=== PATIENT | female | born 1980 | race Asian ===

== ENCOUNTER 2020-07-08 08:00 | Outpatient (CLI) | payer OTHER ==
[2020-07-08 12:37] LABS: ALBUMIN 4.1 g/dL (3.2-5.5); ALBUMIN/GLOBULIN RATIO 0.9 (1.0-2.2); ALKALINE PHOSPHATASE 46 IU/L (42-121); ALT ALANINE AMINOTRANSFERASE 29 IU/L (10-60); AST ASPARTATE AMINOTRANSFERASE 20 IU/L (10-42); BILIRUBIN,TOTAL 0.8 mg/dL (0.2-1.0); BUN - BLOOD UREA NITROGEN 18 mg/dL (6-20); CARBON DIOXIDE - CO2 26 mmol/L (21-32); CHLORIDE 102 mmol/L (101-111); CHOL/HDL RATIO 3.7 (<4.4); CHOLESTEROL 196 mg/dL; CREATININE 0.4 mg/dL (0.4-1.0); GFR - MDRD 178 (>89); GLUCOSE 109 mg/dL (70-100); HDL CHOLESTEROL 53 mg/dL; LDL CHOLESTEROL,CALCULATED 126 mg/dL; LDL/HDL RATIO 2.4 (<4.4); POTASSIUM 3.7 mmol/L (3.5-5.0); SODIUM 136 mmol/L (135-145); TOTAL PROTEIN 8.5 g/dL (6.7-8.2); TRIGLYCERIDES 83 mg/dL; VLDL CHOLESTEROL 17 mg/dL
[2020-07-08 12:48] LABS: THYROID STIMULATING HORMONE 1.71 uIU/mL (0.34-5.60)
[2020-07-08 12:52] LABS: ESTIMATED AVERAGE GLUCOSE 114 mg/dL (70-100); HEMOGLOBIN A1c% 5.6 % (4.27-6.07)
== END 2020-07-08 23:59 | disposition home or self-care (01) ==
LOC: LAB.WCP 08:00
PROVIDERS: ATTEND Family Medicine
DX: Z86.32 Personal history of gestational diabetes (principal); L65.9 Nonscarring hair loss, unspecified
CPT/HCPCS: 36415; 80053; 80061; 83036; 83721; 84443

== ENCOUNTER 2021-05-07 08:00 | Outpatient (CLI) | payer OTHER ==
[2021-05-07 12:29] LABS: BASOPHILS % (AUTO) 0.9 %; EOSINOPHILS # (AUTO) 0.2 10^3/uL (0.0-0.7); EOSINOPHILS % (AUTO) 4.1 %; HCT - HEMATOCRIT 39.1 % (37.0-47.0); HGB - HEMOGLOBIN 12.5 g/dL (12.0-16.0); LYMPHOCYTES # (AUTO) 1.6 10^3/uL (1.5-3.5); LYMPHOCYTES % (AUTO) 35.1 %; MEAN CORPUSCULAR HEMOGLOBIN 25.8 pg (27.0-31.0); MEAN CORPUSCULAR VOLUME 80.8 fL (81.0-99.0); MEAN PLATELET VOLUME 11.1 fL (7.9-10.8); MONOCYTES # (AUTO) 0.3 10^3/uL (0.0-1.0); MONOCYTES % (AUTO) 6.5 %; NEUTROPHILS # (AUTO) 2.5 10^3/uL (1.5-6.6); NEUTROPHILS % (AUTO) 53.2 %; PLT - PLATELET COUNT 242 10^3/uL (130-450); RED BLOOD COUNT 4.84 10^6/uL (4.20-5.40); RED CELL DISTRIBUTION WIDTH 12.3 % (12.0-15.0); WHITE BLOOD COUNT 4.6 x10^3/uL (4.8-10.8)
[2021-05-07 12:37] LABS: THYROID STIMULATING HORMONE 2.34 uIU/mL (0.34-5.60)
[2021-05-07 12:40] LABS: ALBUMIN/GLOBULIN RATIO 0.9 (1.0-2.2); ALKALINE PHOSPHATASE 44 IU/L (42-121); ALT ALANINE AMINOTRANSFERASE 43 IU/L (10-60); AST ASPARTATE AMINOTRANSFERASE 34 IU/L (10-42); BILIRUBIN,TOTAL 0.9 mg/dL (0.2-1.0); BUN - BLOOD UREA NITROGEN 11 mg/dL (6-20); CARBON DIOXIDE - CO2 29 mmol/L (21-32); CHLORIDE 101 mmol/L (101-111); CHOL/HDL RATIO 3.9 (<4.4); CHOLESTEROL 204 mg/dL; CREATININE 0.5 mg/dL (0.4-1.0); GFR - MDRD 137 (>89); GLUCOSE 121 mg/dL (70-100); HDL CHOLESTEROL 52 mg/dL; LDL CHOLESTEROL,CALCULATED 126 mg/dL; LDL/HDL RATIO 2.4 (<4.4); POTASSIUM 3.8 mmol/L (3.5-5.0); SODIUM 136 mmol/L (135-145); TOTAL PROTEIN 8.5 g/dL (6.7-8.2); TRIGLYCERIDES 129 mg/dL; VLDL CHOLESTEROL 26 mg/dL
[2021-05-07 12:42] LABS: ESTIMATED AVERAGE GLUCOSE 120 mg/dL (70-100); HEMOGLOBIN A1c% 5.8 % (4.27-6.07)
== END 2021-05-07 23:59 | disposition home or self-care (01) ==
LOC: LAB.WCP 08:00
PROVIDERS: ATTEND Family Medicine
DX: Z00.00 Encounter for general adult medical examination without abnormal findings (principal); Z86.32 Personal history of gestational diabetes
CPT/HCPCS: 36415; 80053; 80061; 83036; 83721; 84443; 85025

== ENCOUNTER 2021-07-15 10:12 | Day surgery (SDC) | payer OTHER ==
[2021-07-15] MEDS ORDERED: LACTATED RINGERS 1,000 ML IV ONE (10:15)
[2021-07-15 10:31] LABS: HCG UR QUAL NEGATIVE
--- NOTE | 2021-07-15 11:05 | ANESTHESIA ---
Pre-Anesthesia VS, & Labs - Diagnosis rectal bleeding - Procedure colonoscopy, hemorrhoidectomy and banding Vital Signs: Temp Pulse Resp BP Pulse Ox 36.6 C 73 16 121/64 100 07/15/21 10:33 07/15/21 10:33 07/15/21 10:33 07/15/21 10:33 07/15/21 10:33 Height: 5 ft 2 in Weight (kg): 71 kg Body Mass Index: 28.6 BMI Classification: Overweight - NPO >8 hours - Is Patient ?: No - Lab Results Lab results reviewed: Yes Home Medications and Allergies Home Medications: Ambulatory Orders No Known Home Medications 07/14/21 No Known Home Medications 07/14/21 Allergies/Adverse Reactions: Allergies Allergy/AdvReac Type Severity Reaction Status Date / Time ibuprofen AdvReac Unknown Verified 07/14/21 13:38 Anes History & Medical History - Anesthetic History Anesthesia Complications: reports: No previous complications Family history of Anesthesia Complications: Denies Family history of Malignant Hyperthermia: Denies - Medical History Cardiovascular: reports: None Pulmonary: reports: None Gastrointestinal: reports: None Urinary: reports: None Musculoskeletal: reports: None Endocrine/Autoimmune: reports: None Skin: reports: None Exam General: Alert, Oriented x3, Cooperative, No acute distress Dental: WNL Mouth Openin Fingerbreadth Neck Mobility: Normal Mallampati classification: II Plan Anesthesia Type: General, Total IV Consent for Procedure(s) Verified and Reviewed: Yes Code Status: Attempt Resuscitation ASA classification: 2-Mild systemic disease Is this case an emergency?: No
[2021-07-15] MEDS ORDERED: PROPOFOL 500 MG/50 ML 500 MG/50 ML VIAL ONE (11:36)
[2021-07-15] MEDS ORDERED: PROPOFOL 200 MG/20 ML VIAL IVP ONE (12:13)
[2021-07-15] MEDS ORDERED: LACTATED RINGERS 400 ML IV ONE (12:23)
[2021-07-15 12:33] VITALS: BP 111/62
--- NOTE | 2021-07-15 13:27 | ANESTHESIA POST OP EVALUATION ---
Anesthesia Post Eval - Post Anesthesia Eval Vitals: Last Vital Signs Temp 0 C L 07/15/21 12:32 Pulse 75 07/15/21 12:32 Resp 16 07/15/21 12:32 BP 111/62 07/15/21 12:32 Pulse Ox 99 07/15/21 12:32 CV Function Including HR & BP: Stable Pain Control: Satisfactory Nausea & Vomiting: Negative Mental Status: Baseline Respiratory Status: Airway Patent Hydration Status: Satisfactory Anesthesia Complications: None
== END 2021-07-15 10:13 | disposition home or self-care (01) ==
LOC: SDS 10:12
PROVIDERS: ATTEND Surgery
DX: K62.5 Hemorrhage of anus and rectum (principal); K64.8 Other hemorrhoids; K64.4 Residual hemorrhoidal skin tags; K59.00 Constipation, unspecified
CPT/HCPCS: 45378; 81025; J7120

== ENCOUNTER 2021-08-11 14:50 | Outpatient (CLI) | payer OTHER ==
--- NOTE | 2021-08-15 16:18 | Mammography Report ---
BILATERAL DIGITAL SCREENING MAMMOGRAM 3D/2D: 08/11/2021 CLINICAL: Baseline exam Routine screening. No prior exams were available for comparison. The tissue of both breasts is heterogeneously dense. T his may lower the sensitivity of mammography. No significant masses, calcifications, or other findings are seen in either breast. IMPRESSION: NEGATIVE There is no mammographic evidence of malignancy. A 1 year screening mammogram is recommended. This exam was interpreted at Station ID: [id number]. NOTE: For mammograms, a report in lay terms will be sent to the patient. Approximately 15% of breast malignancies will not be visualized mammographically. In the management of a palpable breast mass, a negative mammogram must not discourage biopsy of a clinically suspicious lesion. Electronically Signed By: Phillip [email or web address]:08/12/2021 08:36:46 ACR BI-RADS Category 1: Negative 3341F PARENCHYMAL PATTERN: (D) - The breast(s) demonstrate(s) heterogeneously dense fibroglandular hitesh alvarado. BI-RADS CATEGORY: (1) - 1 RECOMMENDATION: (ANNUAL) - Recommend routine annual screening mammography. [id number] 1 year screening LATERALITY: (B)
== END 2021-08-11 14:51 | disposition home or self-care (01) ==
LOC: DI.N 14:50
DX: Z12.31 Encounter for screening mammogram for malignant neoplasm of breast (principal)

== ENCOUNTER 2022-06-19 08:10 | Outpatient (CLI) | payer OTHER ==
[2022-06-19 11:53] LABS: BASOPHILS % (AUTO) 1.1 %; EOSINOPHILS # (AUTO) 0.2 10^3/uL (0.0-0.7); EOSINOPHILS % (AUTO) 4.2 %; HCT - HEMATOCRIT 38.7 % (37.0-47.0); HGB - HEMOGLOBIN 12.2 g/dL (12.0-16.0); LYMPHOCYTES # (AUTO) 1.4 10^3/uL (1.5-3.5); LYMPHOCYTES % (AUTO) 38.4 %; MEAN CORPUSCULAR HEMOGLOBIN 25.4 pg (27.0-31.0); MEAN CORPUSCULAR HGB CONC 31.5 g/dL (32.0-36.0); MEAN CORPUSCULAR VOLUME 80.6 fL (81.0-99.0); MEAN PLATELET VOLUME 11.1 fL (7.9-10.8); MONOCYTES # (AUTO) 0.3 10^3/uL (0.0-1.0); MONOCYTES % (AUTO) 7.8 %; NEUTROPHILS # (AUTO) 1.7 10^3/uL (1.5-6.6); NEUTROPHILS % (AUTO) 48.2 %; PLT - PLATELET COUNT 234 10^3/uL (130-450); RED CELL DISTRIBUTION WIDTH 12.2 % (12.0-15.0); WHITE BLOOD COUNT 3.6 x10^3/uL (4.8-10.8)
[2022-06-19 12:22] LABS: ALBUMIN/GLOBULIN RATIO 0.9 (1.0-2.2); ALKALINE PHOSPHATASE 43 IU/L (42-121); ALT ALANINE AMINOTRANSFERASE 36 IU/L (10-60); AST ASPARTATE AMINOTRANSFERASE 28 IU/L (10-42); BILIRUBIN,TOTAL 0.7 mg/dL (0.2-1.0); BUN - BLOOD UREA NITROGEN 15 mg/dL (6-20); CALCIUM 9.4 mg/dL (8.5-10.3); CARBON DIOXIDE - CO2 28 mmol/L (21-32); CHLORIDE 104 mmol/L (101-111); CHOLESTEROL 196 mg/dL; CREATININE 0.5 mg/dL (0.4-1.0); GFR - MDRD 136 (>89); GLUCOSE 117 mg/dL (70-100); HDL CHOLESTEROL 49 mg/dL; LDL CHOLESTEROL,CALCULATED 135 mg/dL; LDL/HDL RATIO 2.8 (<4.4); POTASSIUM 3.9 mmol/L (3.5-5.0); SODIUM 138 mmol/L (135-145); THYROID STIMULATING HORMONE 2.17 uIU/mL (0.34-5.60); TOTAL PROTEIN 8.4 g/dL (6.7-8.2); TRIGLYCERIDES 61 mg/dL; VLDL CHOLESTEROL 12 mg/dL
[2022-06-19 12:40] LABS: ESTIMATED AVERAGE GLUCOSE 123 mg/dL (70-100); HEMOGLOBIN A1c% 5.9 % (4.27-6.07)
== END 2022-06-19 08:11 | disposition home or self-care (01) ==
LOC: LAB.N 08:10
PROVIDERS: ATTEND Nurse Practitioner Family
DX: Z00.00 Encounter for general adult medical examination without abnormal findings (principal); R73.01 Impaired fasting glucose
CPT/HCPCS: 36415; 80053; 80061; 83036; 83721; 84443; 85025

== ENCOUNTER 2023-02-19 08:20 | Outpatient (CLI) | payer OTHER ==
[2023-02-19 12:27] LABS: BASOPHILS % (AUTO) 0.5 %; EOSINOPHILS # (AUTO) 0.2 10^3/uL (0.0-0.7); EOSINOPHILS % (AUTO) 5.1 %; HCT - HEMATOCRIT 39.1 % (37.0-47.0); HGB - HEMOGLOBIN 12.2 g/dL (12.0-16.0); LYMPHOCYTES # (AUTO) 1.4 10^3/uL (1.5-3.5); LYMPHOCYTES % (AUTO) 36.6 %; MEAN CORPUSCULAR HEMOGLOBIN 25.3 pg (27.0-31.0); MEAN CORPUSCULAR HGB CONC 31.2 g/dL (32.0-36.0); MEAN PLATELET VOLUME 11.2 fL (7.9-10.8); MONOCYTES # (AUTO) 0.3 10^3/uL (0.0-1.0); MONOCYTES % (AUTO) 7.9 %; NEUTROPHILS % (AUTO) 49.6 %; PLT - PLATELET COUNT 227 10^3/uL (130-450); RED BLOOD COUNT 4.83 10^6/uL (4.20-5.40); RED CELL DISTRIBUTION WIDTH 12.4 % (12.0-15.0); WHITE BLOOD COUNT 3.9 x10^3/uL (4.8-10.8)
[2023-02-19 12:45] LABS: ALBUMIN 4.2 g/dL (3.2-5.5); BILIRUBIN,TOTAL 0.7 mg/dL (0.2-1.0); CALCIUM 9.4 mg/dL (8.5-10.3); CREATININE 0.4 mg/dL (0.6-1.3); POTASSIUM 4.2 mmol/L (3.5-4.5); TOTAL PROTEIN 8.6 g/dL (6.4-8.9)
[2023-02-19 12:56] LABS: THYROID STIMULATING HORMONE 1.47 uIU/mL (0.34-5.60)
[2023-02-19 13:02] LABS: FERRITIN 284.3 ng/mL (11.0-306.8)
[2023-02-19 13:05] LABS: ESTIMATED AVERAGE GLUCOSE 123 mg/dL (70-100); HEMOGLOBIN A1c% 5.9 % (4.27-6.07)
== END 2023-02-19 08:21 | disposition home or self-care (01) ==
LOC: LAB.N 08:20
PROVIDERS: ATTEND Nurse Practitioner Family
DX: R74.8 Abnormal levels of other serum enzymes (principal); E66.9 Obesity, unspecified; R71.8 Other abnormality of red blood cells; L65.9 Nonscarring hair loss, unspecified; R53.83 Other fatigue; R73.03 Prediabetes
CPT/HCPCS: 36415; 80053; 82728; 83036; 83540; 84443; 84466; 85025

== ENCOUNTER 2023-06-10 13:45 | Outpatient (CLI) | payer OTHER | END 2023-06-10 14:00 | disposition home or self-care (01) | LOC: LAB.N 13:45 | PROVIDERS: ATTEND Family Medicine | DX: R30.0 Dysuria (principal) | CPT/HCPCS: 87086 ==